=== PATIENT | female | born 1945 | race Caucasian/White ===

== ENCOUNTER → 2016-06-29 | Outpatient (CLI) | payer OTHER ==
[~2016-06-29] MED LIST: ASPIRIN81 M2 PO; BIOTIN10000 MC1 PO; FOLIC ACID PO; HYDROCHLOROTHIA25 MG PO; LIPITOR PO; LOSARTAN POTASS50 MG PO; RENVELA800 MG PO
--- NOTE | ~2016-06-29 | EKG ---
PATIENT: DENISLON HOWARD UNIT #: [id number] Ventricular Rate: 71 BPM Atrial Rate: 71 BPM P-R Interval: 112 ms QRS Duration: 76 ms Q-T Interval: 402 ms QTC Calculation(Bezet): 436 ms P [place]: 19 degrees Calculated R [place]: 2 degrees Calculated T [place]: 58 degrees Diagnosis Line: Normal sinus rhythm Diagnosis Line: Low voltage QRS Diagnosis Line: Inferior infarct , age undetermined Diagnosis Line: Abnormal ECG Diagnosis Line: No previous ECGs available Diagnosis Line: Confirmed by ANN GARDNER MD ([id number]) on 06/29/2016 Diagnosis Line: 9:23:54 PM INTERPRETING MD: KENDRA HENRY
[2016-06-29 14:19] LABS: CALCIUM SERUM 9.1 mg/dL (8.4-10.2); CREATININE SERUM 0.6 mg/dL (0.6-1.4); GLOM FILT RATE Estimated 91.7 mL/min (>60); POTASSIUM 4.2 mmol/L (3.5-5.1)
== END | disposition home or self-care (01) ==
LOC: CAMB 11:55
PROVIDERS: Ophthalmology Pediatric Ophthalmology and Strabismus Specialist
DX: Z01.818 Encounter for other preprocedural examination (principal)
CPT/HCPCS: 36415; 80048; 93005

== ENCOUNTER → 2016-07-12 | Day surgery (SDC) | payer OTHER ==
--- NOTE | ~2016-07-12 | OR ---
Unit #: [id number] #: [id number] Patient: DENILSON HOWARD [id number] [address] [place], [place] [address] [id number] O MR#: [id number] NAME: DENILSON HOWARD ROOM: Date of Procedure: 07/12/2016 Admission Date: 07/12/2016 Surgeon: Citlaly Sarkar M.D. : 1945 Attending Physician: Citlaly Sarkar M.D. Primary Care Physician: Eduardo Escobedo D.O. OPERATIVE REPORT LICENSE INSPECTOR senior maintenance technician, Veronica Saha. PREOPERATIVE DIAGNOSES Diplopia and left esotropia. POSTOPERATIVE DIAGNOSIS Left esotropia. PROCEDURE PERFORMED Left medial rectus recession, 6 mm, hang-back technique. FINDINGS Normal forced ductions. ANESTHESIA General. COMPLICATIONS None. ESTIMATED BLOOD LOSS Less than 1 mL. INDICATIONS FOR PROCEDURE This is a 71-year-old lady with history of binocular diplopia and that she has had for quite a while, and her preoperative measurements measured 20 prism diopters, comitant esotropia at distance and an 8 esotropia at near. Preoperatively, her diplopia resolved with 20 AC in prism over the right eye, in any gaze, at distance or at near. After discussing the benefits, alternatives, and risks of surgery including, but not limited to persistent diplopia, bleeding, infection, loss of vision, loss of eye, need for further surgery, need for prism and/or glasses, longstanding red discoloration to the eye, and the patient agreed to proceed with strabismus repair of the left eye. DESCRIPTION OF PROCEDURE The patient was then brought back to the operating suite and placed in the supine position. Anesthesia was maintained under general. The left eye was prepped and draped in usual fashion for ocular surgery. A time-out was made, and the eye and procedure were correctly identified. Tegaderm was used to secure the lashes. A lid speculum was placed to keep the lids Unit #: [id number] #: [id number] Patient: DENILSON HOWARD apart. Forced ductions were performed and were found to be negative. An inferonasal fornix incision was made horizontally through the hardin fragile conjunctiva, and a vertical incision was made through the Tenon capsule. A Ventura hook was used to engage the medial rectus muscle. This was followed by series of Green hooks. Next, the conjunctival-Tenon layer was reflected over the toe of the Green hook. A small snip was made through the intermuscular septum. Two Ventura hooks were placed through this space and the superior pole test was performed confirming identification of the superior insertion of the medial rectus muscle. The anterior septal attachments were bluntly dissected off. A 6-0 Vicryl suture with an S29 needle on each end was passed partial thickness, followed by a locking bite on each end. The muscle was disinserted from the globe using the Aebli scissors. Each needle was then passed back to the original insertion site in a V pattern. The muscle was brought all the way up. A knot was made 6 mm along the suture from the edge of the muscle and was tied down. The needles were cut off. The muscle was allowed to hang back. Confirmation of the 6 mm recession was made using the caliper. The overlying conjunctiva was closed with two interrupted 6-0 plain gut stitches. The eye was dressed with a few drops of 5% Betadine, irrigated and then TobraDex ophthalmic ointment, and the eye was covered with a patch. The patient was extubated and taken to the recovery room having tolerated the procedure well. Dictated by.Brennon. Barbara Carrion/mane TD: 07/13/2016 03:28 JOB #: [id number] OPERATIVE REPORT Page 1 of 1 X X PROCEDURE OPERATIVE NOTE
== END | disposition home or self-care (01) ==
LOC: CSUR 05:42
DX: H50.00 Unspecified esotropia (principal); H53.2 Diplopia; I25.2 Old myocardial infarction; K21.9 Gastro-esophageal reflux disease without esophagitis; E78.5 Hyperlipidemia, unspecified; F17.200 Nicotine dependence, unspecified, uncomplicated; Z88.2 Allergy status to sulfonamides
CPT/HCPCS: J0330; J2250; J2405; J2765; J3010